=== PATIENT | male | born 1995 | race Two or more races ===

== ENCOUNTER 2021-07-29 12:57 | Emergency (ER) | payer MEDICAID ==
[~2021-07-29] VITALS: Ht 167.6 cm; Wt 68.0 kg
--- NOTE | 2021-07-29 13:18 | NUR ---
BIBSELF C/O LOWER BACK PAIN P/S 05/12 S/P PLAYING BASKETBALL 07/24/21, TOOK TRAMADOL THAT RELIEVED PAIN THEN STARTED VOMITING. RESPIRATION REGULAR AND UNLABORED. WILL CONTINUE TO MONITOR THE PATIENT.
[2021-07-29] MEDS ORDERED: TRAM50TA2 PO (13:20)
[2021-07-29] MEDS ORDERED: CAPS1ADH5 TP (13:20)
[2021-07-29] MEDS ORDERED: ONDA4TAB5 PO (13:20)
[2021-07-29 13:30] VITALS: BP 127/75
--- NOTE | 2021-07-29 13:30 | NUR ---
Patient discharged to home in stable condition. Written and verbal after care instructions given. Patient verbalizes understanding of instruction.
== END 2021-07-29 13:30 | disposition home or self-care (01) ==
LOC: ER 13:03
DX: M54.50 Low back pain, unspecified (principal); R11.2 Nausea with vomiting, unspecified; X58.XXXA Exposure to other specified factors, initial encounter; Y93.67 Activity, basketball; Y92.310 Basketball court as the place of occurrence of the external cause; Y99.8 Other external cause status